=== PATIENT | female | born 1990 ===

== ENCOUNTER 2017-09-24 17:38 | Emergency (ER) | payer OTHER ==
[2017-09-24 17:46] VITALS: TEMP 98.6; BMI 29.0
[2017-09-24] MEDS ORDERED: ONDANSETRON 4 MG/2 ML VIAL ONE ×2 (18:15→20:49)
--- NOTE | 2017-09-24 18:24 | PDOC ---
History of Present Illness <Ismael Gillis S - Last Filed: 09/24/17 18:19> - General History Source: Patient (walks in with complaints of Nausea/vomiting and diarrhea. ) Exam Limitations: No Limitations - History of Present Illness Timing/Duration: intermittent (Since this morning. ) Severity: moderate Associated Symptoms: reports: nausea/vomiting <Froylan Gerard - Last Filed: 09/24/17 18:57> <Jad Looney - Last Filed: 09/24/17 23:14> - General Chief Complaint: Vomiting/Diarrhea Stated Complaint: N/V/D Time Seen by Provider: 09/24/17 17:40 Past History - Past Medical History COPD: No Other medical history: PT DENIES - Suicide/Smoking/Psychosocial Hx Smoking History: Never smoked Hx Alcohol Use: No Drug/Substance Use Hx: No Substance Use Type: None <Ismael Gillis S - Last Filed: 09/24/17 18:19> - Past Medical History GI Disorders: Yes (Stomach ulcer) <Froylan Gerard - Last Filed: 09/24/17 18:57> <Jad Looney - Last Filed: 09/24/17 23:14> - Past Medical History Allergies/Adverse Reactions: Allergies Allergy/AdvReac Type Severity Reaction Status Date / Time latex Allergy Unknown Verified 09/24/17 17:40 No Known Drug Allergies Allergy Verified 09/24/17 17:40 Home Medications: Ambulatory Orders Ondansetron HCl [Zofran] 4 mg PO QID PRN #6 tablet 09/24/17 Review of Systems - Review of Systems Able to Perform ROS?: Yes ABD/GI: Yes: Diarrhea, Vomiting, Other (Diffuse abdominal pain. ) All Other Systems: Reviewed and Negative <Froylan Gerard - Last Filed: 09/24/17 18:57> *Physical Exam - Vital Signs Last Vital Signs Temp Pulse Resp BP Pulse Ox 98.6 F 110 H 18 115/86 98 09/24/17 17:41 09/24/17 17:41 09/24/17 17:41 09/24/17 17:41 09/24/17 17:41 <Ismael Gillis S - Last Filed: 09/24/17 18:19> - Vital Signs Last Vital Signs Temp Pulse Resp BP Pulse Ox 98.6 F 110 H 18 115/86 98 09/24/17 17:41 09/24/17 17:41 09/24/17 17:41 09/24/17 17:41 09/24/17 17:41 - Physical Exam Gastrointestinal/Abdominal: positive: Tender (Mildly diffuse. ) <Froylan Gerard - Last Filed: 09/24/17 18:57> - Vital Signs Last Vital Signs Temp Pulse Resp BP Pulse Ox 98.6 F 113 H 18 122/81 100 09/24/17 17:41 09/24/17 20:48 09/24/17 20:48 09/24/17 20:48 09/24/17 20:48 <Jad Looney - Last Filed: 09/24/17 23:14> Procedures - Additional Procedures Additional Procedures: other (Given IV fluids. ) <Froylan Gerard - Last Filed: 09/24/17 18:57> ED Treatment Course - LABORATORY CBC & Chemistry Diagram: 09/24/17 18:12 09/24/17 18:12 - ADDITIONAL ORDERS Additional order review: Laboratory Results 09/24/17 18:12 Sodium 133 L Potassium 4.5 Chloride 102 Carbon Dioxide 23 Anion Gap 8 BUN 14 Creatinine 1.2 Creat Clearance w eGFR 54.30 Random Glucose 119 H Calcium 9.9 Total Bilirubin 0.7 AST 39 ALT 55 H Alkaline Phosphatase 141 H Total Protein 8.9 H Albumin 4.4 09/24/17 18:12 RBC 5.86 H MCV 82.9 MCHC 33.5 RDW 13.6 MPV 8.0 Neutrophils % No Result Required. Lymphocytes % No Result Required. <Froylan Gerard - Last Filed: 09/24/17 18:57> - LABORATORY CBC & Chemistry Diagram: 09/24/17 18:12 09/24/17 18:12 - ADDITIONAL ORDERS Additional order review: Laboratory Results 09/24/17 18:12 Sodium 133 L Potassium 4.5 Chloride 102 Carbon Dioxide 23 Anion Gap 8 BUN 14 Creatinine 1.2 Creat Clearance w eGFR 54.30 Random Glucose 119 H Calcium 9.9 Total Bilirubin 0.7 AST 39 ALT 55 H Alkaline Phosphatase 141 H Total Protein 8.9 H Albumin 4.4 09/24/17 18:12 RBC 5.86 H MCV 82.9 MCHC 33.5 RDW 13.6 MPV 8.0 Neutrophils % No Result Required. Lymphocytes % No Result Required. - Medications Given in the ED: ED Medications Discontinued Medications Generic Name Dose Route Start Last Admin Trade Name Hilary PRN Reason Stop Dose Admin Metoclopramide HCl 10 mg 09/24/17 21:54 09/24/17 22:08 Reglan Injection - IVPUSH 09/24/17 21:55 10 mg ONCE ONE Administration Ondansetron HCl 4 mg 09/24/17 20:51 09/24/17 20:55 Zofran Injection IVPUSH 09/24/17 20:52 4 mg ONCE ONE Administration <Jad Looney - Last Filed: 09/24/17 23:14> Medical Decision Making - Medical Decision Making 09/24/17 22:51 received on signout serial abd exams with nt abd WBC noted. Patient well appearing. HR improved to 92. TOlerated PO in ED <Jad Looney - Last Filed: 09/24/17 23:14> *DC/Admit/Observation/Transfer <Ismael Gillis - Last Filed: 09/24/17 18:19> - Attestations Scribe Attestion: 09/24/17 19:12 Documentation prepared by Froylan Gerard, acting as biomedical equipment technician for Ismael Gillis MD/DO. <Froylan Gerard - Last Filed: 09/24/17 18:57> <Jad Looney - Last Filed: 09/24/17 23:14> Diagnosis at time of Disposition: Gastroenteritis, Dehydration - Discharge Dispostion Condition at time of disposition: Stable - Patient Instructions Printed Discharge Instructions: DI for Viral Gastroenteritis -- Adult Additional Instructions: Immodium for diarrhea Motrin for pain
[2017-09-24 18:28] LABS: HEMATOCRIT 48.6 % (32.4-45.2); HEMOGLOBIN 16.3 GM/dl (10.7-15.3); MCH 27.8 pg (25.7-33.7); MCHC 33.5 g/dl (32.0-36.0); MEAN CELL VOLUME 82.9 fl (80-96); PLATELET COUNT 480 K/MM3 (134-434); RBC 5.86 M/mm3 (3.60-5.2); RDW 13.6 % (11.6-15.6); WHITE BLOOD COUNT 17.5 K/mm3 (4.0-10.8)
[2017-09-24 18:41] LABS: ALBUMIN 4.4 g/dl (3.5-5.0); ALK PHOS 141 U/L (32-92); ANION GAP 8 (8-16); BILIRUBIN,TOTAL 0.7 mg/dl (0.2-1.0); BLOOD UREA NITROGEN 14 mg/dl (7-18); CALCIUM 9.9 mg/dl (8.4-10.2); CHLORIDE 102 mmol/L (98-107); CO2 23 mmol/L (22-28); CREATININE 1.2 mg/dl (0.6-1.3); GLUCOSE,RANDOM 119 mg/dl (74-106); POTASSIUM 4.5 mmol/L (3.5-5.1); SGOT/AST 39 U/L (10-42); SGPT/ALT 55 U/L (10-40); SODIUM 133 mmol/L (136-145); TOT PROT 8.9 g/dl (6.4-8.3)
[2017-09-24 20:49] VITALS: BP 122/81; PULSE 113
[2017-09-24] MEDS ORDERED: ONDANSETRON 4 MG/2 ML VIAL IVPUSH ONE (20:51)
[2017-09-24] MEDS ORDERED: METOCLOPRAMIDE HCL INJECTION 10 MG/2 ML VIAL IVPUSH ONE (21:54)
[2017-09-24 23:02] LABS: PLATELET ESTIMATE SLT INCREASE
== END 2017-09-24 22:54 | disposition home or self-care (01) ==
LOC: FER 17:38
PROC: 3E033GC Introduction of Other Therapeutic Substance into Peripheral Vein, Percutaneous Approach (ICD-10-PCS; principal; 2017-09-24)
DX: K52.9 Noninfective gastroenteritis and colitis, unspecified (principal); E86.0 Dehydration
CPT/HCPCS: 36415; 80053; 85025; 99282-25

== ENCOUNTER 2018-04-17 21:42 | Emergency (ER) | payer OTHER ==
[2018-04-17 21:46] VITALS: BP 121/84; PULSE 102; TEMP 98.4; BMI 31.1
--- NOTE | 2018-04-17 22:09 | PDOC ---
History of Present Illness - General Chief Complaint: Redness To Affected Area Stated Complaint: LT ARM REDNESS Time Seen by Provider: 04/17/18 22:02 - History of Present Illness Initial Comments: This otherwise healthy 28-year-old woman presents with a one-day history of left arm rash accompanied by edema and pain. Patient states that she noted some swelling of her left fingers 4 days ago. She had no accompanying pain or sensory changes. She noted an insect bite at the base of her left thumb a few days ago; this resolved without incident. Earlier today, she noted a pruritic insect bite of the inside of her wrist. Over the last several hours prior to presentation, she is noted painful erythematous, edematous areas of the forearm , antecubital fossa and upper arm. No other rash noted. She denies pruritus or blistering of the rash. Patient has had mild subjective fever but no measured fever or chills. No other symptoms noted. No previous history of cellulitis/abscess requiring treatment. The patient had upper respiratory symptoms as well as a cough and was seen by her PMD 3 days ago; she was started on azithromycin (Z-Jack). Patient had never taken azithromycin previously. Respiratory symptoms are gradually resolving. PMH No significant past medical history On no medications ALLERGIES to latex and be examined but NO KNOWN DRUG ALLERGIES Patient currently smokes less than one pack per day; she denies alcohol other recreational drug use Past History - Past Medical History Allergies/Adverse Reactions: Allergies Allergy/AdvReac Type Severity Reaction Status Date / Time latex Allergy Unknown Verified 09/24/17 17:40 bee venom protein (honey bee) Allergy Verified 04/17/18 21:46 No Known Drug Allergies Allergy Verified 09/24/17 17:40 Home Medications: Ambulatory Orders Azithromycin [Zithromax -] 250 mg PO DAILY 04/17/18 Clindamycin HCl [Cleocin HCl] 300 mg PO TID #21 capsule 04/18/18 COPD: No GI Disorders: Yes (Stomach ulcer) - Suicide/Smoking/Psychosocial Hx Smoking History: Current every day smoker Number of Cigarettes Smoked Daily: 5 Information on smoking cessation initiated: Yes Hx Alcohol Use: No Drug/Substance Use Hx: No Substance Use Type: None Review of Systems - Review of Systems Able to Perform ROS?: Yes Comments:: 12 point review of systems is negative except for what is noted in the history of present illness *Physical Exam - Vital Signs Last Vital Signs Temp Pulse Resp BP Pulse Ox 98.4 F 102 H 16 121/84 99 04/17/18 21:44 04/17/18 21:44 04/17/18 21:44 04/17/18 21:44 04/17/18 21:44 - Physical Exam Comments: GENERAL: Adult female, alert and oriented 3, in no acute distress HEAD: Normal with no signs of trauma. EYES: PERRLA, EOMI, sclera anicteric, conjunctiva clear. ENT: Ears normal, nares patent, oropharynx clear without exudates. Moist mucous membranes. NECK: Normal range of motion, supple without lymphadenopathy, JVD, or masses. LUNGS: Breath sounds equal, clear to auscultation bilaterally. No wheezes, and no crackles. HEART:Regular rate and rhythm, normal S1 and S2 without murmur, rub or gallop. ABDOMEN:.normal bowel sounds No guarding,tenderness or rebound.No masses No distention. EXTREMITIES: Left upper extremity-1 cm diameter erythematous, slightly raised lesion ventral surface of the wrist 3 cm by 2.5 cm mildly erythematous, mildly indurated, nonfluctuant, mildly tender area volar surface forearm 3 cm x 3 cm mildly erythematous, mildly indurated, nonfluctuant, mildly tender area of antecubital fossa. Volar surface of upper arm is mildly erythematous and minimally tender No clear lymphangitic streaking ; no discharge or fluctuance evident No axillary lymphadenopathy palpable Remainder of extremity exam is normal NEUROLOGICAL: Cranial nerves II through XII grossly intact. Normal speech. No focal neurological deficits. MUSCULOSKELETAL: Back non-tender to palpation, no CVA tenderness SKIN: Warm, Dry, normal turgor, no rashes or lesions noted except that noted of the left upper extremity. ED Treatment Course - LABORATORY CBC & Chemistry Diagram: 04/17/18 23:00 04/17/18 23:00 Medical Decision Making - Medical Decision Making This 28-year-old woman presents with a one-day history of edema/erythema/ painful rash in her left arm; she has no other rash noted. Patient is on second day of azithromycin (Z-Jack) for respiratory illness, prescribed by her PCP. No previous history of being medicated with azithromycin. Exam as noted with increased warmth in the area of rash of the left arm. Although rash may be secondary to adverse drug reaction, she does have superficial insect bites of the left hand/wrist. It is possible that the edema/ erythema/pain is secondary to cellulitis of the arm. CBC/chemistry profile/lactic acid sent. CBC reveals mild elevation of white blood cell count at 11,800. The patient states that she has a mild elevation of her white blood cell count chronically. Chemistry profile generally unremarkable except for very mild elevation of transaminases and alkaline phosphatase. Vancomycin 1 g IV given empirically for cellulitis of the left arm. Patient was also given a liter normal saline IV hydration and 30 mg Toradol IV for analgesia. Patient states that most her pain has resolved and rash is less tender after above medications. Patient will be discharged with plans for follow-up by her PCP, Dr. Mullins, tomorrow. Meanwhile, she will stop azithromycin and start clindamycin. Milligrams 3 times a day with the first dose approximately noontime this coming day. She should return to the ER she has worsening pain/redness/swelling or if she develops fever *DC/Admit/Observation/Transfer Diagnosis at time of Disposition: Cellulitis Qualifiers: Site of cellulitis: extremity Site of cellulitis of extremity: upper extremity Laterality: left Qualified Code(s): L03.114 - Cellulitis of left upper limb - Discharge Dispostion Disposition: HOME Condition at time of disposition: Stable - Prescriptions Prescriptions: Clindamycin HCl [Cleocin HCl] 300 mg PO TID #21 capsule - Referrals Referrals: Anai Mullins [Staff Physician] - 24 hours - Patient Instructions Printed Discharge Instructions: DI for Cellulitis -- Adult Additional Instructions: stop Azithromycin Begin clindamycin 300 mg 3 times a day; first dose at noon time tomorrow (Saturday ) Continue ibuprofen/naproxen/acetaminophen as needed for pain Follow-up with Dr. Mullins tomorrow as discussed Return to ER if you have worsening pain/swelling/redness of the arm or develop fever/chills - Post Discharge Activity
[2018-04-17] MEDS ORDERED: VANCOMYCIN 1 GRAM (PRE-DOCKED) 1,000 MG/250 ML BAG IVPB ONE (22:48)
[2018-04-17] MEDS ORDERED: SODIUM CHLORIDE 1,000 ML IV STA (22:48)
[2018-04-17] MEDS ORDERED: VANCOMYCIN 1,000 MG VIAL (RESTRICTED TO ID ONLY) ONE (22:50)
[2018-04-17] MEDS ORDERED: KETOROLAC TROMETHAMINE 30 MG/1 ML VIAL IVPUSH ONE (22:50)
[2018-04-17] MEDS ORDERED: KETOROLAC TROMETHAMINE 30 MG/1 ML VIAL ONE (23:08)
[2018-04-17 23:17] LABS: BASO % 0.2 % (0-2.0); EOS % 2.1 % (0-4.5); HEMATOCRIT 40.4 % (32.4-45.2); HEMOGLOBIN 13.2 GM/dl (10.7-15.3); LYMPH % 19.1 % (8-40); MCH 26.7 pg (25.7-33.7); MCHC 32.8 g/dl (32.0-36.0); MEAN CELL VOLUME 81.4 fl (80-96); MEAN PLT VOLUME 7.2 fl (7.5-11.1); MONO % 5.5 % (3.8-10.2); NEUT % 73.1 % (42.8-82.8); PLATELET COUNT 436 K/MM3 (134-434); RBC 4.96 M/mm3 (3.60-5.2); RDW 13.6 % (11.6-15.6); WHITE BLOOD COUNT 11.8 K/mm3 (4.0-10.8)
[2018-04-17 23:29] LABS: ALBUMIN 3.4 g/dl (3.5-5.0); ALK PHOS 114 U/L (32-92); ANION GAP 6 (8-16); BILIRUBIN,TOTAL 0.3 mg/dl (0.2-1.0); BLOOD UREA NITROGEN 13 mg/dl (7-18); CALCIUM 8.9 mg/dl (8.4-10.2); CHLORIDE 104 mmol/L (98-107); CO2 24 mmol/L (22-28); CREATININE 0.9 mg/dl (0.6-1.3); GLUCOSE,RANDOM 112 mg/dl (74-106); POTASSIUM 3.9 mmol/L (3.5-5.1); SGOT/AST 51 U/L (10-42); SGPT/ALT 70 U/L (10-40); SODIUM 134 mmol/L (136-145)
== END 2018-04-18 01:18 | disposition home or self-care (01) ==
LOC: FER 21:42
PROC: 3E0333Z Introduction of Anti-inflammatory into Peripheral Vein, Percutaneous Approach (ICD-10-PCS; principal; 2018-04-17)
PROC: 3E03329 Introduction of Other Anti-infective into Peripheral Vein, Percutaneous Approach (ICD-10-PCS; 2018-04-17)
PROC: 3E0337Z Introduction of Electrolytic and Water Balance Substance into Peripheral Vein, Percutaneous Approach (ICD-10-PCS; 2018-04-17)
DX: L03.114 Cellulitis of left upper limb (principal); F17.210 Nicotine dependence, cigarettes, uncomplicated
CPT/HCPCS: 36415; 80053; 83605; 85025; 87040; 99282-25; J7030

== ENCOUNTER 2021-02-04 10:08 | Emergency (ER) | payer OTHER ==
[2021-02-04] MEDS ORDERED: FLUORESCEIN NA 1 EA STRIP OS ONE (10:11)
[2021-02-04] MEDS ORDERED: TETRACAINE 0.5% OPHTH SOLN 2 ML BOTTLE ONE (10:13)
[2021-02-04] MEDS ORDERED: FLUORESCEIN NA 1 EA STRIP ONE (10:13)
[2021-02-04] MEDS ORDERED: DIPHTH,PERTUSS(ACELL),TET 0.5 ML DISP.SYRIN IM ONE ×2 (10:23→10:30)
[2021-02-04] MEDS ORDERED: CIPROFLOXACIN HCL 0.3% OPHTH 2.5ML BOTTLE ONE (10:30)
[2021-02-04] MEDS ORDERED: CIPROFLOXACIN 0.3% EYE DROPS 5 ML BOTTLE OS ONE (10:30)
== END 2021-02-04 10:49 | disposition home or self-care (01) ==
LOC: FER 10:08
PROC: 3E0234Z Introduction of Serum, Toxoid and Vaccine into Muscle, Percutaneous Approach (ICD-10-PCS; principal; 2021-02-04)
DX: S05.02XA Injury of conjunctiva and corneal abrasion without foreign body, left eye, initial encounter (principal)
CPT/HCPCS: 90715; 99283-25